=== PATIENT | female | born 1960 | race Caucasian/White ===

== ENCOUNTER 2022-09-17 09:59 | Inpatient (IN) | payer OTHER ==
[2022-09-17 10:15] VITALS: BMI 24.8
[2022-09-17] MEDS ORDERED: IBUPROFEN 400 MG TABLET (FP) PO PRN (11:31)
[2022-09-17] MEDS ORDERED: MAGNESIUM HYDROX 2400MG/30ML ORAL SUSPENSION 30 ML CUP PO PRN (11:31)
[2022-09-17] MEDS ORDERED: IBUPROFEN 600 MG TABLET (FP) PO PRN (11:31)
[2022-09-17] MEDS ORDERED: guaiFENesin 600 MG TABLET.ER (FP) PO PRN (11:31)
[2022-09-17] MEDS ORDERED: BISMUTH SUBSALICYLATE 262 MG/15 ML BTL PO PRN (11:31)
[2022-09-17] MEDS ORDERED: BENZOCAINE/MENTHOL (CHLORASEPTIC ) LOZENGE MM PRN (11:31)
[2022-09-17] MEDS ORDERED: NALOXONE HCL (KLOXXADO) 8 MG SPRAY NS PRN (11:31)
[2022-09-17] MEDS ORDERED: ACETAMINOPHEN 325 MG TABLET (FP) PO PRN (11:31)
[2022-09-17] MEDS ORDERED: LORazepam 1 MG TABLET PO PRN (11:31)
[2022-09-17] MEDS ORDERED: hydrOXYzine PAMOATE 25 MG CAPSULE (FP) PO PRN (11:31)
[2022-09-17] MEDS ORDERED: POLYETHYLENE GLYCOL (HEALTHYLAX) 3350 17 GM PACKET PO PRN (11:31)
[2022-09-17] MEDS ORDERED: METHOCARBAMOL 500 MG TABLET PO PRN (11:31)
[2022-09-17] MEDS ORDERED: LOPERAMIDE HCL 2 MG CAPSULE PO PRN (11:31)
[2022-09-17] MEDS ORDERED: DICYCLOMINE HCL 10 MG CAPSULE PO PRN (11:31)
[2022-09-17] MEDS ORDERED: NICOTINE 10 MG CARTRIDGE (INHALER) IH PRN (11:31)
[2022-09-17] MEDS ORDERED: MAG HYDROX/AL HYDROX/SIMETH 30 ML UNIT-DOSE CUP PO PRN (11:31)
[2022-09-17] MEDS ORDERED: NALOXONE HCL 0.4 MG/ML VIAL IM PRN (11:31)
[2022-09-17] MEDS ORDERED: BENZONATATE 200 MG CAPSULE PO PRN (11:31)
[2022-09-17] MEDS ORDERED: LORazepam 2 MG TABLET PO ONE (11:52)
[2022-09-17] MEDS ORDERED: PRENATAL VITAMINS W/ FOLIC ACID TABLET (FP) PO ONE (11:59)
[2022-09-17] MEDS: PRENATAL VITAMINS W/ FOLIC ACID TABLET (FP) PO SCH (12:01)
[2022-09-17] MEDS ORDERED: INSULIN SLIDING SCALE (NOVOLOG) 1 VIAL SQ SCH ×2 (12:52→16:30)
[2022-09-17] MEDS: INSULIN SLIDING SCALE (NOVOLOG) 1 VIAL SQ SCH ×2 (13:26→17:01)
[2022-09-17 14:41] LABS: HEMATOCRIT 40.4 % (32.4-45.2); HEMOGLOBIN 13.6 GM/dL (10.7-15.3); MCH 29.8 pg (25.7-33.7); MCHC 33.6 g/dl (32.0-36.0); MEAN CELL VOLUME 88.7 fl (80-96); MEAN PLT VOLUME 7.7 fl (7.5-11.1); PLATELET COUNT 392 10^3/uL (134-434); RBC 4.56 M/mm3 (3.60-5.2); RDW 14.6 % (11.6-15.6); WHITE BLOOD COUNT 5.6 K/mm3 (4.0-10.0)
[2022-09-17 14:53] LABS: ALBUMIN 3.6 g/dl (3.4-5.0)
[2022-09-17 14:55] LABS: CALCIUM 8.8 mg/dL (8.5-10.1)
[2022-09-17 14:56] LABS: BLOOD UREA NITROGEN 11.3 mg/dL (7-18)
[2022-09-17 14:57] LABS: CREATININE 0.7 mg/dL (0.55-1.3)
[2022-09-17 14:59] LABS: BILIRUBIN,TOTAL 0.3 mg/dL (0.2-1); TOT PROT 7.1 g/dl (6.4-8.2)
[2022-09-17] MEDS ORDERED: INSULIN (NOVOLOG) ASPART 100 UNITS/ML 10ML VIAL ONE (16:59)
[2022-09-17] MEDS: LORazepam 2 MG TABLET PO SCH ×2 (18:00→22:40)
[2022-09-17] MEDS: ATORVASTATIN CA 10 MG TABLET (FP) PO SCH (22:39)
[2022-09-17] MEDS: MELATONIN 5 MG TABLETS PO SCH (22:39)
[2022-09-17] MEDS: THIAMINE HCL 100 MG TABLET (FP) PO SCH (22:40)
[2022-09-18] MEDS: LORazepam 2 MG TABLET PO SCH ×4 (05:22→22:32)
[2022-09-18] MEDS: INSULIN SLIDING SCALE (NOVOLOG) 1 VIAL SQ SCH ×3 (06:12→18:04)
[2022-09-18] MEDS: ASPIRIN 81 MG CHEWABLE TABLETS PO SCH (11:41)
[2022-09-18] MEDS: PRENATAL VITAMINS W/ FOLIC ACID TABLET (FP) PO SCH (11:41)
[2022-09-18] MEDS: EMPAGLIFLOZIN (NF) 10 MG TABLET PO SCH (13:30)
[2022-09-18] MEDS: THIAMINE HCL 100 MG TABLET (FP) PO SCH (22:32)
[2022-09-18] MEDS: ATORVASTATIN CA 10 MG TABLET (FP) PO SCH (22:32)
[2022-09-18] MEDS: MELATONIN 5 MG TABLETS PO SCH (22:32)
[2022-09-19] MEDS: LORazepam 1 MG TABLET PO SCH ×4 (05:56→22:15)
[2022-09-19] MEDS: EMPAGLIFLOZIN (NF) 10 MG TABLET PO SCH (08:10)
[2022-09-19] MEDS: INSULIN SLIDING SCALE (NOVOLOG) 1 VIAL SQ SCH ×3 (08:11→16:34)
[2022-09-19] MEDS: PRENATAL VITAMINS W/ FOLIC ACID TABLET (FP) PO SCH (10:42)
[2022-09-19] MEDS: ASPIRIN 81 MG CHEWABLE TABLETS PO SCH (10:42)
[2022-09-19] MEDS: ESCITALOPRAM OXALATE 20 MG TABLET PO SCH (14:00)
[2022-09-19] MEDS ORDERED: INSULIN (NOVOLOG) ASPART 100 UNITS/ML 10ML VIAL ONE (16:46)
[2022-09-19] MEDS: ATORVASTATIN CA 10 MG TABLET (FP) PO SCH (22:13)
[2022-09-19] MEDS: THIAMINE HCL 100 MG TABLET (FP) PO SCH (22:13)
[2022-09-19] MEDS: risperiDONE 2 MG TABLET PO SCH (22:13)
[2022-09-19] MEDS: MELATONIN 5 MG TABLETS PO SCH (22:14)
[2022-09-20] MEDS ORDERED: LORazepam 0.5 MG TABLET PO PRN
[2022-09-20] MEDS: LORazepam 0.5 MG TABLET PO SCH ×4 (05:55→22:21)
[2022-09-20] MEDS: EMPAGLIFLOZIN (NF) 10 MG TABLET PO SCH (06:07)
[2022-09-20] MEDS: INSULIN SLIDING SCALE (NOVOLOG) 1 VIAL SQ SCH ×2 (06:50→16:52)
[2022-09-20] MEDS ORDERED: INSULIN (NOVOLOG) ASPART 100 UNITS/ML 10ML VIAL ONE ×2 (06:51→16:26)
[2022-09-20] MEDS ORDERED: TRIMETHOBENZAMIDE HCL 200MG/2ML INJ IM PRN (09:57)
[2022-09-20] MEDS: PRENATAL VITAMINS W/ FOLIC ACID TABLET (FP) PO SCH (10:32)
[2022-09-20] MEDS: ESCITALOPRAM OXALATE 20 MG TABLET PO SCH (10:32)
[2022-09-20] MEDS: ASPIRIN 81 MG CHEWABLE TABLETS PO SCH (10:32)
[2022-09-20] MEDS: ONDANSETRON *ODT* 4 MG TABLET SL PRN (16:52)
[2022-09-20] MEDS: ATORVASTATIN CA 10 MG TABLET (FP) PO SCH (22:19)
[2022-09-20] MEDS: THIAMINE HCL 100 MG TABLET (FP) PO SCH (22:20)
[2022-09-20] MEDS: MELATONIN 5 MG TABLETS PO SCH (22:20)
[2022-09-20] MEDS: risperiDONE 2 MG TABLET PO SCH (22:20)
[2022-09-21] MEDS: ONDANSETRON *ODT* 4 MG TABLET SL PRN ×2 (02:18→10:12)
[2022-09-21] MEDS ORDERED: LORazepam 0.5 MG TABLET PO ONE (05:00)
[2022-09-21] MEDS: EMPAGLIFLOZIN (NF) 10 MG TABLET PO SCH (06:10)
[2022-09-21] MEDS ORDERED: INSULIN (NOVOLOG) ASPART 100 UNITS/ML 10ML VIAL ONE (06:21)
[2022-09-21] MEDS: INSULIN SLIDING SCALE (NOVOLOG) 1 VIAL SQ SCH (07:02)
[2022-09-21] MEDS: ESCITALOPRAM OXALATE 20 MG TABLET PO SCH (10:12)
[2022-09-21] MEDS: PRENATAL VITAMINS W/ FOLIC ACID TABLET (FP) PO SCH (10:12)
[2022-09-21] MEDS: ASPIRIN 81 MG CHEWABLE TABLETS PO SCH (10:12)
[2022-09-21 11:08] VITALS: BP 96/66; PULSE 112; RESP 16; TEMP 96.9
== END 2022-09-21 10:42 | disposition home or self-care (01) | DRG 774 ==
LOC: YASAS 09:59 → Y6N 12:17
PROVIDERS: ADMIT Allergy & Immunology; ATTEND Surgery
PROC: HZ2ZZZZ Detoxification Services for Substance Abuse Treatment (ICD-10-PCS; principal; 2022-09-17)
DX: F10.230 Alcohol dependence with withdrawal, uncomplicated (principal); F14.20 Cocaine dependence, uncomplicated; F12.20 Cannabis dependence, uncomplicated; F17.210 Nicotine dependence, cigarettes, uncomplicated; F31.81 Bipolar II disorder; F19.282 Other psychoactive substance dependence with psychoactive substance-induced sleep disorder; F19.24 Other psychoactive substance dependence with psychoactive substance-induced mood disorder; K76.0 Fatty (change of) liver, not elsewhere classified; B18.2 Chronic viral hepatitis C; E10.9 Type 1 diabetes mellitus without complications; Z79.4 Long term (current) use of insulin; R63.4 Abnormal weight loss; Z68.24 Body mass index [BMI] 24.0-24.9, adult; Z96.643 Presence of artificial hip joint, bilateral; Z96.651 Presence of right artificial knee joint; Z28.310 Unvaccinated for COVID-19; Z28.9 Immunization not carried out for unspecified reason
CPT/HCPCS: 36415; 80053; 82140; 82962; 85027; 86780; 87811; C9803-CS; Q0162; U0003; U0005